=== PATIENT | male | born 1980 | race Caucasian/White ===

== ENCOUNTER 2020-10-25 23:51 | Emergency (ER) | payer BC, OTHER ==
[2020-10-25 23:57] VITALS: BP 132/89; PULSE 61; RESP 16; TEMP 97.1
[2020-10-26] MEDS ORDERED: ACET/COD 300 MG/30 MG STARTER PACK 6 TAB BTL PO STA (00:36)
--- NOTE | 2020-10-26 00:36 | ED ---
ENT HPI - General Chief complaint: Dental/Oral Stated complaint: Tooth pain Time Seen by Provider: 10/26/20 00:20 Source: patient, RN notes reviewed Mode of arrival: ambulatory Limitations: no limitations - History of Present Illness Initial comments: 40-year-old male patient presents to the emergency room with several weeks of right lower dental pain. Patient states he has worked out something with his dentist and he needs to have the tooth extracted. Patient states has been taking Motrin with no relief now radiates to the side of his face. Patient denies any other medical problems denies smoking. States no medication on a daily basis. MD complaint: tooth pain -: week(s) (3) Severity scale (1-10): 10 Quality: aching Consistency: constant Improves with: none - Related Data Previous Rx's Medication Instructions Recorded Penicillin V Potassium [Pen Vee K] 500 mg PO Q6HR 10 Days #40 tablet 10/26/20 Allergies Allergy/AdvReac Type Severity Reaction Status Date / Time No Known Allergies Allergy Verified 10/25/20 23:57 Review of Systems ROS Statement: Those systems with pertinent positive or pertinent negative responses have been documented in the HPI. ROS Other: All systems not noted in ROS Statement are negative. Past Medical History Additional Past Medical History / Comment(s): Spontaneous Pneumothorax- right History of Any Multi-Drug Resistant Organisms: None Reported Additional Past Surgical History / Comment(s): Chest tube placement Past Psychological History: No Psychological Hx Reported Past Alcohol Use History: None Reported Past Drug Use History: None Reported General Exam Limitations: no limitations General appearance: alert, in no apparent distress Head exam: Present: atraumatic, normocephalic, normal inspection Eye exam: Present: normal appearance, PERRL, EOMI. Absent: scleral icterus, conjunctival injection, periorbital swelling ENT exam: Present: normal exam, mucous membranes moist, other (Tooth #17 with a deep dental caries and no abscess noted) Neck exam: Present: normal inspection, full ROM. Absent: tenderness, meningismus, lymphadenopathy Respiratory exam: Present: normal lung sounds bilaterally. Absent: respiratory distress, wheezes, rales, rhonchi, stridor Cardiovascular Exam: Present: regular rate, normal rhythm, normal heart sounds. Absent: systolic murmur, diastolic murmur, rubs, gallop, clicks GI/Abdominal exam: Present: soft, normal bowel sounds. Absent: distended, tenderness, guarding, rebound, rigid Back exam: Present: full ROM. Absent: tenderness, CVA tenderness (R), CVA tenderness (L) Neurological exam: Present: alert, oriented X3, CN II-XII intact Psychiatric exam: Present: normal affect, normal mood Skin exam: Present: warm, dry, intact, normal color. Absent: rash Course Vital Signs 10/25/20 23:52 Temperature 97.1 F L Pulse Rate 61 Respiratory 16 Rate Blood Pressure 132/89 O2 Sat by Pulse 98 Oximetry Medical Decision Making - Medical Decision Making There is no abscess noted, patient is afebrile, patient knows he has poor dentition and a cavity noted that needs to be extracted. Patient requesting pain medication and antibiotics which will be provided. Case discussed with Dr. Polo and will discharge patient Disposition Clinical Impression: Dental caries Disposition: HOME SELF-CARE Condition: Good Instructions (If sedation given, give patient instructions): Toothache (ED) Prescriptions: Penicillin V Potassium [Pen Vee K] 500 mg PO Q6HR 10 Days #40 tablet Is patient prescribed a controlled substance at d/c from ED?: No Referrals: None,Stated [Primary Care Provider] - 1-2 days Time of Disposition: 00:36
[2020-10-26] MEDS ORDERED: KETOROLAC 15 MG/ML 1 ML VIAL IM STA (00:38)
== END 2020-10-26 01:26 | disposition home or self-care (01) ==
LOC: EC 23:51
DX: K02.9 Dental caries, unspecified (principal)
CPT/HCPCS: 99282; 96372; J1885